=== PATIENT | male | born 1985 | race African-American/Black ===

== ENCOUNTER 2024-03-31 14:39 | Inpatient (IN) | payer MEDICAID, OTHER ==
[~2024-03-31] VITALS: Ht 175.3 cm; Wt 93.1 kg
[2024-03-31] VITALS (17 sets, daily range): BP systolic 106–140; BP diastolic 55–79; PULSE 77–135; RESP 14–19; TEMP 98–100.2; O2SAT 94–100
[~2024-03-31 14:39] MED LIST: AMIT-256 PO; DIVA-91 PO; QUET400T PO
[2024-03-31] MEDS: SODIUM CHLORIDE 0.9% 1,000 ML IV ONE (14:50)
[2024-03-31] MEDS: NALOXONE HCL 1MG/ML 2ML SYRINGE IV ONE (15:00)
[2024-03-31] MEDS: NALOXONE HCL 1MG/ML 2ML SYRINGE ONE (15:17)
[2024-03-31] MEDS: ROCURONIUM 10MG/ML 10ML VIAL IV ONE ×3 (15:23→18:58)
[2024-03-31] MEDS: MIDAZOLAM HCL 5 MG/ML-1ML VIAL IV ONE (15:23)
[2024-03-31] MEDS: MIDAZOLAM HCL 5 MG/ML-1ML VIAL ONE (15:23)
[2024-03-31] MEDS: MIDAZOLAM DRIP 50 mg/50mL 50 ML IV SCH (15:30)
[2024-03-31] MEDS: MIDAZOLAM DRIP 50 mg/50mL 50 ML IV ONE (16:00)
[2024-03-31] MEDS: PROPOFOL 100 ML IV ONE (16:00)
[2024-03-31 16:02] LABS: Basophils # (auto) 0.1 10 ^3/uL (0-0.2); Basophils % (auto) 0.7 % (0.0-2.0); Eosinophils # (auto) 0.1 10 ^3/uL (0-0.8); Eosinophils % (auto) 0.9 % (0.0-7.0); Hematocrit 47.7 % (41.0-53.0); Hemoglobin 15.8 g/dL (13.5-17.5); Lymphocytes # (auto) 2.5 10 ^3/uL (0.4-5.4); Lymphocytes % (auto) 22.8 % (10.0-50.0); Mean Corpuscular Hemoglobin 30.1 pg (28.0-32.0); Mean Corpuscular Hgb Conc. 33.2 g/dL (32.0-36.0); Mean Corpuscular Volume 90.8 fL (80.0-100.0); Monocytes # (auto) 0.8 10 ^3/uL (0-1.3); Monocytes % (auto) 7.7 % (0.0-12.0); Neutrophils # (auto) 7.4 10 ^3/uL (1.6-8.6); Neutrophils % (auto) 67.9 % (37.0-80.0); Platelet Count (auto) 257 10^3/uL (140-450); Red Blood Cells 5.26 10^6/uL (4.5-5.90); Red Cell Distribution Width 14.2 % (11.8-14.3); White Blood Cell 10.9 10^3/uL (4.4-10.8)
[2024-03-31] MEDS: PROPOFOL 100 ML IV SCH (16:02)
[2024-03-31 16:17] LABS: Urine Amorphous Crystal FEW /hpf (None Seen); Urine Bacteria FEW /hpf (None Seen); Urine Blood Negative /uL (Negative); Urine Clarity Clear (Clear); Urine Color Yellow (Yellow); Urine Hyaline Cast FEW /lpf (0 - 2); Urine Mucus FEW (None Seen); Urine Protein, UAD TRACE (Negative); Urine Specific Gravity 1.017 (1.001-1.035); Urine Urobilinogen Normal (Negative); Urine WBC 2 /hpf (0 - 3)
[2024-03-31 16:20] LABS: Amphetamine Screen, Urine Neg (NEGATIVE); Barbiturate Scree,Urine Neg (NEGATIVE); Benzodiazephine Screen, Urine Pos (NEGATIVE); Cannabinoid Screen, Urine Pos (NEGATIVE); Cocaine Screen, Urine Neg (NEGATIVE); Opiate Scree,Urine Neg (NEGATIVE); Phencyclidine Screen, Urine Neg (NEGATIVE)
[2024-03-31 16:22] LABS: Alanine Aminotransferase 25 U/L (7-40); Albumin 4.1 g/dL (3.2-4.8); Alkaline Phosphatase 71 U/L (46-116); Anion Gap 6 (5-15); Aspartate Aminotransferase 23 U/L (13-40); Blood Alcohol 67.6 mg/dL (<10); Blood Urea Nitrogen 6 mg/dL (9-23); Calcium 9.4 mg/dL (8.7-10.4); Carbon Dioxide 23 mmol/L (20-30); Chloride 108 mmol/L (98-107); Glucose 125 mg/dL (74-106); Potassium 3.4 mmol/L (3.5-5.1); Sodium 137 mmol/L (136-145)
[2024-03-31 16:23] LABS: Bilirubin, Total 0.5 mg/dL (0.2-1.0); Total Protein 6.7 g/dL (5.7-8.2)
[2024-03-31 16:41] LABS: Base Excess -3.1 mmol/L (-2.0-2.0)
[2024-03-31 17:14] LABS: Lactic Acid w/Reflex 2.5 mmol/L (0.4-2.0)
[2024-03-31] MEDS: SODIUM CHLORIDE 0.9% 2,000 ML IV ONE (17:17)
[2024-03-31] MEDS ORDERED: ACETAMINOPHEN 650 MG RECT SUPP PR PRN (17:45)
[2024-03-31] MEDS ORDERED: ONDANSETRON HCL 4 MG/2 ML VIAL IV PRN (17:45)
[2024-03-31] MEDS: SODIUM CHLORIDE 0.9% 1,000 ML IV SCH (18:00)
[2024-03-31] MEDS: POTASSIUM CHL 20MEQ/100ML 100 ML IV ONE (18:00)
[2024-03-31] MEDS: fentaNYL Drip 2500mCg/250mlNS 250 ML IV SCH (19:00)
[2024-03-31] MEDS ORDERED: MORPHINE SULFATE INJ 2 MG/ml SYRG IV PRN (19:15)
[2024-03-31] MEDS ORDERED: NITROGLYCERIN 0.4 MG SL TAB SL PRN (19:15)
[2024-03-31] MEDS: FAMOTIDINE (10MG/ML) 2ML VL IV SCH (22:30)
[2024-03-31] MEDS ORDERED: QUET50TA PO (22:39)
[2024-04-01] VITALS (107 sets, daily range): BP systolic 73–135; BP diastolic 26–83; PULSE 58–117; RESP 8–25; TEMP 97.8–102; O2SAT 91–100
[2024-04-01 06:35] LABS: Alanine Aminotransferase 16 U/L (7-40); Alkaline Phosphatase 54 U/L (46-116); Aspartate Aminotransferase 19 U/L (13-40); Bilirubin, Total 0.4 mg/dL (0.2-1.0); Calcium 7.6 mg/dL (8.7-10.4); Chloride 113 mmol/L (98-107); Glucose 87 mg/dL (74-106); Potassium 3.9 mmol/L (3.5-5.1); Sodium 142 mmol/L (136-145); Total Protein 4.9 g/dL (5.7-8.2)
[2024-04-01] MEDS: POTASSIUM CHL 20MEQ/100ML 100 ML IV ONE (06:45)
[2024-04-01 06:47] LABS: BUN/Creatinine Ratio 6.5 (10.0-20.0); Blood Urea Nitrogen < 5 mg/dL (9-23)
[2024-04-01 06:50] LABS: Anion Gap 5 (5-15); Carbon Dioxide 24 mmol/L (20-30)
[2024-04-01 07:22] LABS: Base Excess -0.4 mmol/L (-2.0-2.0)
[2024-04-01] MEDS ORDERED: LORazepam 2MG/ML-1ML VIAL IV PRN ×2 (10:45→16:45)
[2024-04-01 11:41] LABS: Basophils # (auto) 0.1 10 ^3/uL (0-0.2); Eosinophils # (auto) 0.2 10 ^3/uL (0-0.8); Eosinophils % (auto) 2.9 % (0.0-7.0); Hematocrit 39.5 % (41.0-53.0); Hemoglobin 13.2 g/dL (13.5-17.5); Lymphocytes # (auto) 2.4 10 ^3/uL (0.4-5.4); Lymphocytes % (auto) 35.3 % (10.0-50.0); Mean Corpuscular Hemoglobin 31.4 pg (28.0-32.0); Mean Corpuscular Hgb Conc. 33.5 g/dL (32.0-36.0); Mean Corpuscular Volume 93.8 fL (80.0-100.0); Monocytes # (auto) 0.7 10 ^3/uL (0-1.3); Neutrophils # (auto) 3.5 10 ^3/uL (1.6-8.6); Neutrophils % (auto) 50.8 % (37.0-80.0); Nucleated Red Blood Cells % 0.3 %; Platelet Count (auto) 175 10^3/uL (140-450); Red Blood Cells 4.21 10^6/uL (4.5-5.90); Red Cell Distribution Width 14.5 % (11.8-14.3); White Blood Cell 6.9 10^3/uL (4.4-10.8)
[2024-04-01] MEDS: THIAMINE 100mg/ml INJ (200mg/2ml VIAL) IV ONE (14:44)
[2024-04-01] MEDS: SODIUM CHLORIDE 0.9% 1,000 ML IV SCH (14:45)
[2024-04-01] MEDS: FOLIC ACID 1 MG in D5W 5% 50 ML INJ ONE (15:02)
[2024-04-01] MEDS: LORazepam 2MG/ML-1ML VIAL ONE (16:34)
[2024-04-01] MEDS: LORazepam 2MG/ML-1ML VIAL IV ONE (17:26)
[2024-04-01] MEDS: PIPERACILLIN-TAZOB 3.375GM 100 ML IV ONE (17:39)
[2024-04-01 18:25] LABS: COVID19 ANTIGEN SOFIA FIA NEGATIVE (NEGATIVE); Rapid Influenza A Negative (Negative); Rapid Influenza B Negative (Negative)
[2024-04-01] MEDS: NOREPINEPHRINE 8 MG/250ML KIT 250 ML IV SCH (18:26)
[2024-04-01] MEDS: NOREPINEPHRINE 8 MG/250ML KIT 250 ML IV ONE (18:26)
[2024-04-01] MEDS: PIPERACILLIN-TAZOB 3.375GM 100 ML IV SCH (23:35)
[2024-04-02] VITALS (82 sets, daily range): BP systolic 106–163; BP diastolic 59–95; PULSE 67–146; RESP 13–42; TEMP 98.7–101.8; O2SAT 90–100
[2024-04-02 04:13] LABS: Basophils # (auto) 0.1 10 ^3/uL (0-0.2); Basophils % (auto) 0.9 % (0.0-2.0); Eosinophils # (auto) 0.3 10 ^3/uL (0-0.8); Eosinophils % (auto) 3.2 % (0.0-7.0); Hematocrit 39.1 % (41.0-53.0); Hemoglobin 13.2 g/dL (13.5-17.5); Lymphocytes # (auto) 1.9 10 ^3/uL (0.4-5.4); Mean Corpuscular Hemoglobin 30.9 pg (28.0-32.0); Mean Corpuscular Hgb Conc. 33.9 g/dL (32.0-36.0); Mean Corpuscular Volume 91.4 fL (80.0-100.0); Monocytes # (auto) 0.9 10 ^3/uL (0-1.3); Monocytes % (auto) 11.4 % (0.0-12.0); Neutrophils % (auto) 61.5 % (37.0-80.0); Nucleated Red Blood Cells % 0.1 %; Platelet Count (auto) 166 10^3/uL (140-450); Red Blood Cells 4.28 10^6/uL (4.5-5.90); Red Cell Distribution Width 14.8 % (11.8-14.3); White Blood Cell 8.2 10^3/uL (4.4-10.8)
[2024-04-02 04:29] LABS: Alanine Aminotransferase 13 U/L (7-40); Alkaline Phosphatase 65 U/L (46-116); Anion Gap 4 (5-15); Aspartate Aminotransferase 13 U/L (13-40); Bilirubin, Total 0.5 mg/dL (0.2-1.0); Calcium 8.1 mg/dL (8.7-10.4); Carbon Dioxide 25 mmol/L (20-30); Chloride 113 mmol/L (98-107); Glucose 89 mg/dL (74-106); Potassium 3.6 mmol/L (3.5-5.1); Sodium 142 mmol/L (136-145); Total Protein 5.2 g/dL (5.7-8.2)
[2024-04-02 04:40] LABS: BUN/Creatinine Ratio 5.3 (10.0-20.0); Blood Urea Nitrogen < 5 mg/dL (9-23)
[2024-04-02 08:10] LABS: Base Excess -1.9 mmol/L (-2.0-2.0)
[2024-04-02] MEDS: THIAMINE 100mg/ml INJ (200mg/2ml VIAL) IV SCH (10:07)
[2024-04-02] MEDS: FOLIC ACID 1 MG in D5W 5% 50 ML INJ SCH (10:09)
[2024-04-02 12:46] LABS: Base Excess -1.5 mmol/L (-2.0-2.0)
[2024-04-02] MEDS: ACETAMINOPHEN IV 1000 MG/100ML (10MG/ML) IV ONE (17:29)
== END 2024-04-02 23:15 | disposition left against medical advice (07) | DRG 720 ==
LOC: ER 14:39 → EDBD 14:39 → ICU WEST 19:09 → CATH ICU 19:09 → ICU WEST 21:30
PROVIDERS: ADMIT Nurse Practitioner Family; ATTEND Internal Medicine
PROC: 5A1945Z Respiratory Ventilation, 24-96 Consecutive Hours (ICD-10-PCS; principal; 2024-03-31)
PROC: 0BH17EZ Insertion of Endotracheal Airway into Trachea, Via Natural or Artificial Opening (ICD-10-PCS; 2024-03-31)
PROC: 06HY33Z Insertion of Infusion Device into Lower Vein, Percutaneous Approach (ICD-10-PCS; 2024-03-31)
PROC: 4A10X4Z Monitoring of Central Nervous Electrical Activity, External Approach (ICD-10-PCS; 2024-04-01)
DX: A41.9 Sepsis, unspecified organism (principal); J96.00 Acute respiratory failure, unspecified whether with hypoxia or hypercapnia; G92.8 Other toxic encephalopathy; F10.229 Alcohol dependence with intoxication, unspecified; R73.9 Hyperglycemia, unspecified; R56.9 Unspecified convulsions; F20.9 Schizophrenia, unspecified; F32.A Depression, unspecified; Z53.29 Procedure and treatment not carried out because of patient's decision for other reasons; G96.9 Disorder of central nervous system, unspecified; Z20.822 Contact with and (suspected) exposure to COVID-19; Z79.899 Other long term (current) drug therapy; Z88.8 Allergy status to other drugs, medicaments and biological substances
CPT/HCPCS: 31500; 36415; 36556; 36600; 70450; 71045; 72125; 80053; 80307; 80320; 81001; 82805; 83605; 85025; 87040; 87070; 87081; 87086; 87205; 87426; 87804; 94002; 94003; 95819; 99291; G0378; J0131; J2250; J2543; J2704; J3480; J3490; J7060